=== PATIENT | female | born 1990 ===

== ENCOUNTER 2022-02-24 10:26 | Outpatient (CLI) | payer OTHER | END 2022-02-24 10:28 | disposition home or self-care (01) | LOC: SONOGRAMA 10:26 | PROVIDERS: ATTEND Pathology Anatomic Pathology & Clinical Pathology | DX: D34 Benign neoplasm of thyroid gland (principal); E06.3 Autoimmune thyroiditis; E04.1 Nontoxic single thyroid nodule ==